=== PATIENT | female | born 1990 | race Hispanic/Latino ===

== ENCOUNTER 2018-07-31 20:29 | Emergency (ER) | payer SELFPAY ==
[2018-07-31 20:50] LABS: #Basophils 0.1 thou/uL (0.0-0.2); #Eosinphils 0.2 thou/uL (0.0-0.7); #Monocytes 0.7 thou/uL (0.11-0.59); #Neutrophils 7.2 thou/uL (1.40-6.50); %Basophils 0.7 % (0.0-1.0); %Eosinophils 1.4 % (0.0-10.0); %Lymphocytes 27.2 % (21.0-51.0); %Monocytes 6.3 % (0.0-10.0); %Neutrophils 64.5 % (42.0-75.0); Hemoglobin 14.6 g/dL (12.0-16.0); Mean Corpuscular HGB CONC 34.7 g/dL (32.0-36.0); Mean Corpuscular Hemoglobin 32.3 pg (27.0-31.0); Mean Platelet Volume 7.6 fL (7.4-10.4); Platelet Count 294 thou/uL (130-400); RBC Distribution Width 11.2 % (11.5-14.5); Red Blood Cell (RBC) Count 4.51 mill/uL (4.20-5.40); White Blood Cell (WBC) Count 11.2 thou/uL (4.8-10.8)
[2018-07-31 21:46] LABS: Bilirubin Negative (Negative); Blood, Urine Negative (Negative); Clarity CLEAR (Clear); Glucose, Urine (Dipstick) Negative (Negative); Leukocyte Negative (Negative); Nitrite Negative (Negative); Protein, Urine (Dipstick) Negative (Neg-Trace); Urobilinogen 0.2 mg/dL (0.2-1.0); pH, Urine 6.5 (5.0-9.0)
[2018-07-31 21:47] LABS: Specific Gravity, Urine 1.003 (1.002-1.036)
--- NOTE | 2018-07-31 23:17 | ULT ---
FIRST TRIMESTER OB ULTRASOUND: 07/31/2018 TECHNIQUE: Multiple longitudinal and transverse images of the pelvis are obtained using a Multi-Hertz curvilinea r, as well as Multi-Hertz endovaginal, transducer. FINDINGS: Real-time, color-flow, and spectral wave-form Doppler analysis demonstrates a retroverted uterus. Th e uterus measures 7.1 x 3.6 x 5.7 cm. A small gestational sac is seen, with a yolk sac, within the uterine cavity. A pole is not vis ualized. Cardiac activity is not appreciated. Both ovaries are visualized with good blood flow. Right ovary measures 3.2 x 1.9 x 1.9 cm, while the left ovary is 4 x 2.3 x 2.4 cm. IMPRESSION: 1. Tiny area of hypodensity seen within the uterine cavity, possible representing a gestational sac. Cardiac activity not visualized. Correlate with hCG levels and follow-up sonography. 2. No evidence of free pelvic fluid seen. POS: [facility]
== END 2018-07-31 23:09 | disposition home or self-care (01) ==
LOC: ERS 20:29
DX: O99.89 Other specified diseases and conditions complicating pregnancy, childbirth and the puerperium (principal); R10.30 Lower abdominal pain, unspecified; Z3A.01 Less than 8 weeks gestation of pregnancy
CPT/HCPCS: 36415; 76856; 81003; 84702; 85025

== ENCOUNTER 2021-05-01 14:05 | Outpatient (CLI) | payer BC, MEDICAID | END 2021-05-01 14:06 | disposition home or self-care (01) | LOC: BICULT 14:05 | PROVIDERS: ATTEND Nurse Practitioner Women's Health | DX: R10.2 Pelvic and perineal pain (principal) | CPT/HCPCS: 76856 ==